=== PATIENT | female | born 1985 | race Two or more races ===

== ENCOUNTER 2018-07-06 22:56 | Emergency (ER) | payer OTHER, SELFPAY ==
[~2018-07-06] VITALS: Ht 165.1 cm; Wt 75.0 kg
[2018-07-06 23:54] VITALS: BP 154/105
== END 2018-07-07 07:04 | disposition left against medical advice (07) ==
LOC: ER 22:56
DX: Z04.6 Encounter for general psychiatric examination, requested by authority (principal)
CPT/HCPCS: 99284; Z7610